=== PATIENT | male | born 1930 | race Caucasian/White ===

== ENCOUNTER → 2018-05-05 | Outpatient (CLI) | payer MEDICARE, OTHER | END | disposition home or self-care (01) | LOC: HKI 10:05 | DX: M17.12 Unilateral primary osteoarthritis, left knee (principal); M16.12 Unilateral primary osteoarthritis, left hip; I10 Essential (primary) hypertension; I25.10 Atherosclerotic heart disease of native coronary artery without angina pectoris; J44.9 Chronic obstructive pulmonary disease, unspecified; G89.29 Other chronic pain; Z88.0 Allergy status to penicillin; Z96.651 Presence of right artificial knee joint | CPT/HCPCS: 73523; 73562-50 ==

== ENCOUNTER 2018-05-15 05:45 | Day surgery (SDC) | payer MEDICARE, OTHER ==
[2018-05-15] MEDS: METHYLPREDNISOLONE ACET 80 MG/ML 1 ML (07:17)
[2018-05-15] MEDS: IOHEXOL 300MG/ML 30 ML BTL (07:17)
[2018-05-15] MEDS: SODIUM CL BACTERIOSTATIC 30 ML INJ (07:20)
[2018-05-15] MEDS ORDERED: hydrALAzine 20 MG INJ IV (07:30)
[2018-05-15] MEDS ORDERED: ONDANSETRON 4 MG INJ IV (07:30)
[2018-05-15] MEDS ORDERED: LABETALOL HCL 20MG INJ IV (07:30)
[2018-05-15] MEDS ORDERED: HYDROmorphONE 1 MG/5 ML IV SYRINGE IV ×3 (07:30)
[2018-05-15] MEDS ORDERED: PROPOFOL 20 ML (07:36)
[2018-05-15] MEDS ORDERED: FENTAnyl 50 MCG/ML VIAL (07:37)
[2018-05-15] MEDS ORDERED: MIDAZOLAM 1 MG/ML 2 ML INJ (07:37)
[2018-05-15] MEDS: BUPIVACAINE 0.25% (MPF) 30 ML INJ (08:28)
[2018-05-15] MEDS: LIDOCAINE 1% (MPF) 30 ML INJ (08:28)
== END 2018-05-15 09:20 | disposition home or self-care (01) ==
LOC: SDS 05:45
DX: M16.12 Unilateral primary osteoarthritis, left hip (principal); I10 Essential (primary) hypertension; J44.9 Chronic obstructive pulmonary disease, unspecified
CPT/HCPCS: 27095; 73530